=== PATIENT | female | born 1965 | race Caucasian/White ===

== ENCOUNTER 2021-09-30 10:25 | Observation (INO) | payer MEDICARE, OTHER ==
[~2021-09-30] VITALS: Ht 160 cm; Wt 53.5 kg
[2021-09-30 11:19] LABS: HEMOGLOBIN 15.5 gm/dl (12.3-15.3); RED BLOOD COUNT 4.72 M/UL (4.00-5.10); WHITE BLOOD COUNT 8.4 K/UL (4.5-11.0)
[2021-09-30 11:57] LABS: BUN/CREATININE RATIO 22 (0-10)
[2021-09-30] MEDS ORDERED: GABAPENTIN300 MG PO (13:46)
[2021-09-30] MEDS ORDERED: ALBUTEROL2.5 MG/3 M NEB (13:46)
[2021-09-30] MEDS ORDERED: HYDROCHLOROTH12.5 M1 PO (13:46)
[2021-09-30] MEDS ORDERED: LISINOPRIL10 MG PO (13:47)
[2021-09-30] MEDS ORDERED: PROTONIX40 MG PO (13:47)
[2021-09-30] MEDS ORDERED: POTASSIUM CHLO10 ME1 PO (13:48)
[2021-09-30] MEDS ORDERED: PROAIR DIGIHAL90 MCG INH (13:48)
[2021-09-30] MEDS ORDERED: IBU800 MG PO (13:49)
[2021-09-30] MEDS ORDERED: DRISDOL1250 MCG PO (13:49)
[2021-09-30] MEDS ORDERED: ISOSORBIDE MONO30 MG PO (13:49)
[2021-09-30] MEDS ORDERED: METOPROLOL SUCC25 MG PO (13:50)
[2021-09-30] MEDS ORDERED: ASPIRIN EC81 MG PO (13:50)
--- NOTE | 2021-09-30 18:33 | NUR ---
1810 BLOOD COLLECTED FOR ACT, GIVEN TO KAROL SHEA
[2021-10-01 03:51] LABS: HEMOGLOBIN 12.3 gm/dl (12.3-15.3); RED BLOOD COUNT 3.82 M/UL (4.00-5.10); WHITE BLOOD COUNT 6.1 K/UL (4.5-11.0)
[2021-10-01 04:10] LABS: BUN/CREATININE RATIO 21 (0-10)
[2021-10-01] MEDS ORDERED: BRILINTA 90 MG90 MG PO (11:44)
[2021-10-01] MEDS ORDERED: ATORVASTATIN CA20 MG PO (11:44)
[2021-10-01] MEDS ORDERED: NITROGLYCERIN0.4 MG SL (11:44)
== END 2021-10-01 15:41 | disposition home or self-care (01) ==
LOC: ER1 10:25 → PROG CARE 12:43 → CDU 12:43 → PROG CARE 12:43
PROVIDERS: Emergency Medicine; Physician Assistant; ADMIT Internal Medicine
PROC: 4A023N8 Measurement of Cardiac Sampling and Pressure, Bilateral, Percutaneous Approach (ICD-10-PCS; principal; 2021-09-30)
PROC: B2111ZZ Fluoroscopy of Multiple Coronary Arteries using Low Osmolar Contrast (ICD-10-PCS; 2021-09-30)
PROC: 027034Z Dilation of Coronary Artery, One Artery with Drug-eluting Intraluminal Device, Percutaneous Approach (ICD-10-PCS; 2021-09-30)
DX: I25.110 Atherosclerotic heart disease of native coronary artery with unstable angina pectoris (principal); E78.5 Hyperlipidemia, unspecified; I10 Essential (primary) hypertension; G89.29 Other chronic pain; M54.9 Dorsalgia, unspecified; Z87.891 Personal history of nicotine dependence; Z20.822 Contact with and (suspected) exposure to COVID-19; Z88.1 Allergy status to other antibiotic agents; Z88.2 Allergy status to sulfonamides; Z88.5 Allergy status to narcotic agent; Z88.8 Allergy status to other drugs, medicaments and biological substances; Z79.82 Long term (current) use of aspirin; Z79.899 Other long term (current) drug therapy
CPT/HCPCS: ECHO; 36415; 71045; 80053; 82550; 82553; 83735; 83874; 84484; 85025; 85610; 85730; 93005; 93306; 93571; 94760; 99152; 99153; 99285; C1769; C1874; C9600; G0378; J0153; J1644; J2250; J3010; J3246; J7040; Q9967; U0002